=== PATIENT | female | born 2000 | race Caucasian/White ===

== ENCOUNTER 2020-04-16 20:36 | Emergency (ER) | payer BC, SELFPAY ==
--- NOTE | ~2020-04-16 | XR_ITS ---
EXAMINATION: XR chest 1V portable 04/16/2020 21:21 INDICATION: Cough. Covid PROCEDURE: AP portable chest COMPARISON: No prior studies for comparison. FINDINGS: The lungs are clear. The cardiomediastinal silhouette is within normal limits. There are no pleural effusions. There is no pneumothorax suspected. IMPRESSION: 1: NO ACUTE CARDIOPULMONARY DISEASE. Reviewed, dictated and finalized at location A.
[2020-04-16 20:37] VITALS: BP 124/72; PULSE 108; RESP 22; TEMP 37.4; O2SAT 99
[2020-04-16 21:40] VITALS: BP 104/75; PULSE 97; RESP 16; O2SAT 96
[2020-04-16 21:54] LABS: Basophils Percent Auto 0.5 % (0.2-1.2); Eosinophils Absolute Auto 0.2 K/mm3 (0-0.3); Eosinophils Percent Auto 2.4 % (0-4.4); Hematocrit 43.8 % (37.0-47.0); Hemoglobin 14.8 g/dL (12.0-15.0); Immature Granulocyte Absolute 0.02 K/mm3 (0.00-0.031); Immature Granulocyte Percent A 0.3 % (0-0.5); Immature Platelet Fraction Pct 9.3 % (0.9-11.2); Lymphocytes Absolute Auto 1.43 K/mm3 (0.9-3.2); Lymphocytes Percent Auto 23.3 % (18.3-44.2); Mean Corpuscular HGB Conc 33.8 g/dl (32-36); Mean Corpuscular Hemoglobin 31.3 pg (26-34); Mean Corpuscular Volume 92.6 fl (80-100); Mean Platelet Volume 13.2 fl (7.4-10.4); Monocytes Absolute Auto 0.8 K/mm3 (0.1-0.6); Monocytes Percent Auto 12.2 % (2.6-8.5); Neutrophils Absolute Auto 3.8 K/mm3 (1.3-6.7); Neutrophils Percent Auto 61.3 % (45.5-73.1); Platelet Count Result 137 k/mm3 (150-375); Red Blood Count 4.73 M/mm3 (4.2-5.4); Red Cell Distribution Width 12.4 % (11.5-14.5); White Blood Count 6.2 K/mm3 (4.5-10.0)
[2020-04-16 22:03] LABS: Lactic Acid Reflex 1.1 mmol/L (0.7-2.1)
[2020-04-16 22:04] LABS: Alanine Aminotransferase 13 U/L (4-35); Albumin Level 4.4 g/dL (3.7-5.6); Alkaline Phosphatase 41 U/L (45-116); Anion Gap 8 mmol/L (8-16); Aspartate Amino Transferase 16 U/L (14-36); Bilirubin,Total 0.3 mg/dL (0.2-1.3); Blood Urea Nitrogen 14 mg/dL (8-21); Calcium 8.8 mg/dL (8.9-10.7); Carbon Dioxide 29 mmol/L (22-30); Chloride 100 mmol/L (98-107); Estimated Glomerular Filt Rate > 60; Glucose 89 mg/dL (65-105); Potassium 3.3 mmol/L (3.4-5.0); Sodium 137 mmol/L (134-143)
--- NOTE | 2020-04-16 22:12 | ED.URI ---
HPI - URI/Sore Throat General Chief Complaint: Upper Respiratory Infection Stated Complaint: covid positive, blue lips? Time Seen by Provider: 04/16/20 21:19 History of Present Illness HPI Narrative: Patient is a 19-year-old female who presents the ER with frequent cough. Patient diagnosed with COVID-19 today after being tested a couple days ago in [place] where she goes to college. Started having symptoms 4 days ago which started with runny nose and cough. Patient reports mild shortness of breath that is not aggravated by moving. No chest pain or chest pressure. Related Data Home Medications Medication Instructions Recorded Confirmed dextroamphetamine-amphetamine PO 04/16/20 [Adderall XR] Allergies Allergy/AdvReac Type Severity Reaction Status Date / Time gluten Allergy Gastrointestinal Verified 04/16/20 21:14 Upset Review of Systems Constitutional: Constitutional: Denies chills, Reports fatigue and Reports fever(s) ENT: Reports nasal congestion and Reports sore throat Respiratory: Respiratory: Reports cough, Reports dyspnea and Denies wheezing PMFSH Past Medical History Medical History (Updated 04/16/20 @ 22:18 by David Boss MD) Healthy female adult Surgical History Surgical History (Updated 04/16/20 @ 22:16 by David Boss MD) No pertinent past surgical history Social History Social History (Updated 04/16/20 @ 22:16 by David Boss MD) Smoking status: Never smoker Exam Narrative: Exam Narrative: GENERAL: Well-appearing, well-nourished, and in no acute distress. HEAD: Normocephalic, atraumatic. ENT: Mucous membranes moist. CHEST: Clear to auscultation. No respiratory distress. HEART: Regular rate and rhythm. Normal peripheral pulses. EXTREMITIES: Normal range of motion. No edema. NEURO: Alert and oriented x3. Course Course Emergency Course: 3 patient ramp placed in the room without hypoxia. Informed of results. Discharge home. Vital Signs Vital signs: Vital Signs Temperature 99.3 F 04/16/20 20:37 Pulse Rate 108 H 04/16/20 20:37 Respiratory Rate 22 H 04/16/20 20:37 Blood Pressure 124/72 04/16/20 20:37 Pulse Oximetry 99 04/16/20 20:37 Temperature 99.3 F 04/16/20 20:37 Pulse Rate 97 04/16/20 21:40 Respiratory Rate 16 04/16/20 21:40 Blood Pressure 104/75 04/16/20 21:40 Pulse Oximetry 96 04/16/20 21:40 MDM - URI/Sore Throat Lab Data Result diagrams: 04/16/20 21:26 04/16/20 21:26 Labs: Lab Results 04/16/20 04/16/20 04/16/20 Range/Units 21:26 21:26 21:26 WBC 6.2 (4.5-10.0) K/mm3 RBC 4.73 (4.2-5.4) M/mm3 Hgb 14.8 (12.0-15.0) g/dL Hct 43.8 (37.0-47.0) % MCV 92.6 (80-100) fl MCH 31.3 (26-34) pg MCHC 33.8 (32-36) g/dl RDW 12.4 (11.5-14.5) % Plt Count 137 L (150-375) k/mm3 MPV 13.2 H (7.4-10.4) fl Immature Gran % (Auto) 0.3 (0-0.5) % Neut % (Auto) 61.3 (45.5-73.1) % Lymph % (Auto) 23.3 (18.3-44.2) % [place] % (Auto) 12.2 H (2.6-8.5) % Eos % (Auto) 2.4 (0-4.4) % Baso % (Auto) 0.5 (0.2-1.2) % Lymph # (Auto) 1.43 (0.9-3.2) K/mm3 [place] # (Auto) 0.8 H (0.1-0.6) K/mm3 Eos # (Auto) 0.2 (0-0.3) K/mm3 Baso # (Auto) 0.0 (0.0-0.1) K/mm3 Abs Immat Gran (auto) 0.02 (0.00-0.031) K/mm3 Absolute Neuts (auto) 3.8 (1.3-6.7) K/mm3 Absolute Nucleated RBC 0.0 (0.0-0.012) K/mm3 Nucleated RBC % 0.0 (0.0-0.2) % % Immature Plt Fraction 9.3 (0.9-11.2) % Sodium 137 (134-143) mmol/L Potassium 3.3 L (3.4-5.0) mmol/L Chloride 100 (98-107) mmol/L Carbon Dioxide 29 (22-30) mmol/L Anion Gap 8 (8-16) mmol/L BUN 14 (8-21) mg/dL Creatinine 0.70 (0.7-1.0) mg/dL Estim Creat Clear Calc Not Reportable Estimated GFR > 60 (59 - ) Glucose 89 (65-105) mg/dL Lactic Acid 1.1 (0.7-2.1) mmol/L Calcium 8.8 L (8.9-10.7) mg/dL Total Bilirubi
[2020-04-16 22:46] VITALS: BP 104/68; PULSE 76; RESP 20; TEMP 36.9; O2SAT 99
== END 2020-04-16 22:46 | disposition home or self-care (01) ==
PROVIDERS: Emergency Medicine Emergency Medical Services; Emergency Provider Emergency Medicine; PCP Pediatrics
DX: U07.1 COVID-19 (principal); R05 Cough
CPT/HCPCS: 36415; 71045; 80053; 83605; 85025; 85055; 87040; 99283